=== PATIENT | male | born 2000 | race Caucasian/White ===

== ENCOUNTER 2018-09-01 13:11 | Emergency (ER) | payer BC ==
--- OUTSIDE RECORDS SUMMARY | 2018-09-01 13:26 | XMS REPORT | Continuity of Care Document ---
:2000 External Reference #:[id number] Author Name Farhad Abraham MD Address [address] [place] [address] Care Team Providers Name Role Phone Bharath Rios MD Primary Care Physician Unavailable Payers Date Identification Numbers Payment Provider Subscriber Policy Number: [id number] [facility] Mallika Arias PayID: [id number] [address] [address] [place] [address] Family History Date Family Member(s) Observation Comments Father No Current Problems Mother No Current Problems Paternal Grandfather Hearing or Eye Problems partially deaf Paternal Grandmother Lung Cancer Paternal Grandmother Thyroid Disease Removed Maternal Grandfather due to Lymphoma () Maternal Grandmother Diabetes Paternal Aunts due to Melanoma () Social History Type Date Description Comments Sex Unknown Lives With Mother And Father Lives With Older brother Pets 1 dog Pets 1 cat Tobacco Use Start: Unknown Patient has never smoked Smoking Status Reviewed: 08/08/18 Patient has never smoked Guns in Home Yes, Locked Up Currently Active Has never engaged in sexual activity Allergies, Adverse Reactions, Alerts Description No Known Drug Allergies Medications Description No Active Medications Immunizations CPT Code Status Date Vaccine Lot # [id number] Given 11/17/2015 Menactra/menveo [id number] 55534 Given 11/17/2015 Flu Vaccine, Split [id number] 98158 Given 01/08/2015 Flu Vaccine, Split [id number] 12082 Given 07/15/2014 Gardasil [id number] 98719 Given 03/11/2014 Gardasil [id number] 79539 Given 01/09/2014 Gardasil [id number] 01419 Given 11/23/2010 Menactra/menveo 46432 Given 12/31/2009 Tdap/Adacel 47920 Given 11/16/2009 Flu Mist 07419 Given 12/09/2008 Flu Mist 63067 Given 11/05/2007 Flu Vaccine, Split 59832 Given 03/08/2007 Flu Mist 26349 Given 09/07/2006 Varicella/Chicken Pox Vaccine 38855 Given 03/13/2006 Hepatitis A Vaccine 17435 Given 09/01/2005 Hepatitis A Vaccine 03140 Given 04/07/2005 Flu Mist 14246 Given 09/09/2003 IPV 92501 Given 09/09/2003 MMR 08436 Given 09/09/2003 DTaP 92695 Given 01/26/2001 DtaP-Hib 28349 Given 01/26/2001 Varicella/Chicken Pox Vaccine 57285 Given 01/26/2001 IPV 19991 Given 01/14/2000 Hepatitis B/Hib Combvax 83432 Given 01/14/2000 MMR 17170 Given 06/29/1999 DTaP 59087 Given 04/27/1999 Hepatitis B/Hib Combvax 51446 Given 04/27/1999 IPV 56478 Given 04/27/1999 DTaP 07891 Given 03/02/1999 Hepatitis B/Hib Combvax 80280 Given 03/02/1999 IPV 68848 Given 03/02/1999 DTaP Vital Signs Date Vital Result Comment 08/08/2018 1:04pm Body Temperature 98.7 F BP Systolic 119 mmHg BP Diastolic 75 mmHg Heart Rate 84 /min Respiratory Rate 22 /min Height 70.5 inches 5'10.50" Height Percentile 63 % Weight 124.00 lb Weight Percentile 6th BMI (Body Mass Index) 17.5 kg/m2 Body Mass Index Percentile 3 % Right Visual Acuity Distance WNL Left Visual Acuity Distance WNL Right ear audiology results Pass Left ear audiology results Pass 07/27/2018 9:04am Body Temperature 98.9 F Respiratory Rate 22 /min Height 70.5 inches 5'10.50" Height Percentile 63 % Weight 124.38 lb Weight Percentile 7th BMI (Body Mass Index) 17.6 kg/m2 Body Mass Index Percentile 3 % 04/04/2016 8:14am Weight 135.00 lb Weight Percentile 34th 02/01/2016 8:20am Weight 134.12 lb Weight Percentile 35th 01/11/2016 10:55am BP Systolic 124 mmHg BP Diastolic 85 mmHg Heart Rate 73 /min Height 70 inches 5'10" Height Percentile 64 % Weight 132.38 lb Weight Percentile 32nd BMI (Body Mass Index) 19.0 kg/m2 Body Mass Index Percentile 18 % Right Visual Acuity Distance 20/20 with glasses Left Visual Acuity Distance 20/20 Right ear audiology results passed Left ear audiology results passed 11/17/2015 4:12pm Body Temperature 98.7 F 01/08/2015 1:28pm BP Systolic 118 mmHg BP Diastolic 76 mmHg Heart Rate 76 /min Height 69 inches 5'9" Height Percentile 59 % Weight 155.25 lb Weight Percentile 79th BMI (Body Mass Index) 22.9 kg/m2 Body Mass Index Percentile 77 % Right Visual Acuity Distance passed with glasses Left Visual Acuity Distance passed with glasses Right ear audiology results passed Left ear audiology results passed 01/09/2014 2:03pm BP Systolic 116 mmHg BP Diastolic 82 mmHg Heart Rate 104 /min Height 67.25 inches 5'7.25" Height Percentile 54 % Weight 140.25 lb Weight Percentile 74th BMI (Body Mass Index) 21.8 kg/m2 Body Mass Index Percentile 74 % Right Visual Acuity Distance 20/25 with glasses Left Visual Acuity Distance 20/25 Right ear audiology results passed Left ear audiology results passed 11/23/2010 10:52am BP Systolic 110 mmHg BP Diastolic 76 mmHg Heart Rate 90 /min Height 59.5 inches 4'11.50" Height Percentile 64 % Weight 97.12 lb Weight Percentile 68th BMI (Body Mass Index) 19.3 kg/m2 Body Mass Index Percentile 72 % Right Visual Acuity Distance 20/30 Left Visual Acuity Distance 20/30 Right ear audiology results 20 db Left ear audiology results 20 db 11/16/2009 10:46am BP Systolic 100 mmHg BP Diastolic 67 mmHg Heart Rate 72 /min Height 57.25 inches 4'9.25" Height Percentile 64 % Weight 87.00 lb Weight Percentile 71st BMI (Body Mass Index) 18.7 kg/m2 Body Mass Index Percentile 73 % Right Visual Acuity Distance 20/20 with correction Left Visual Acuity Distance 20/20 with correction Right ear audiology results 20 db Left ear audiology results 20 db 08/27/2008 10:46am BP Systolic 89 mmHg BP Diastolic 60 mmHg Heart Rate 76 /min Height 54.5 inches 4'6.50" Height Percentile 59 % Weight 67.38 lb Weight Percentile 49th BMI (Body Mass Index) 15.9 kg/m2 Body Mass Index Percentile 39 % Right Visual Acuity Distance 20/50 Left Visual Acuity Distance 20/30 Results Test Date Facility Test Result H/L Range Note Laboratory test 07/27/2018 [facility] Rapid Strep A Negative Negative 1, [address] [place] [address] [phone] Laboratory test 07/27/2018 [facility] Throat Strep NO BETA [address] Screen STREPTOC <[place] [address] NOTE> [phone] Comp Metabolic 01/11/2016 [facility] Sodium 139 mmol/L N 133-145 Panel [phone] Potassium 4.4 mmol/L N 3.5-5.0 Chloride 102 mmol/L N 101-111 Co2 Carbon Dioxide 27 mmol/L N 22-32 Anion Gap 10 mmol/L N 2-11 Glucose 78 mg/dL N 70-100 Blood Urea Nitrogen 9 mg/dL N 6-24 Creatinine 0.85 mg/dL N 0.67-1.17 BUN/Creatinine Ratio 10.6 N 8-20 Calcium 10.1 mg/dL N 8.6-10.3 Total Protein 7.6 g/dL N 6.4-8.9 Albumin 4.9 g/dL N 3.2-5.2 Globulin 2.7 g/dL N 2-4 Albumin/Globulin Ratio 1.8 N 1-3 Total Bilirubin 1.00 mg/dL N 0.2-1.0 Alkaline Phosphatase 133 U/L High 34-104 Alt 17 U/L N 7-52 Ast 21 U/L N 13-39 CBC Auto Diff 01/11/2016 [facility] White Blood Count 10.2 10^3/uL N 3.5-10.8 [phone] Red Blood Count 5.68 10^6/uL High 4.0-5.4 Hemoglobin 17.0 g/dL N 14.0-18.0 Hematocrit 49 % N 42-52 Mean Corpuscular Volume 87 fL N 80-94 Mean Corpuscular Hemoglobin 30 pg N 27-31 Mean Corpuscular HGB Conc 34 g/dL N 31-36 Red Cell Distribution Width 12 % N 10.5-15 Platelet Count 208 10^3/uL N 150-450 Mean Platelet Volume 8 um3 N 7.4-10.4 Abs Neutrophils 8.4 10^3/uL High 1.5-7.7 Abs Lymphocytes 1.1 10^3/uL N 1.0-4.8 Abs Monocytes 0.6 10^3/uL N 0-0.8 Abs Eosinophils 0.1 10^3/uL N 0-0.6 Abs Basophils 0 10^3/uL N 0-0.2 Abs Nucleated RBC 0.02 10^3/uL N Granulocyte % 82.2 % N 38-83 Lymphocyte % 10.9 % Low 25-47 Monocyte % 5.8 % N 1-9 Eosinophil % 0.8 % N 0-6 Basophil % 0.3 % N 0-2 Nucleated Red Blood Cells % 0.2 N Laboratory test 01/11/2016 [facility] TSH (Thyroid Stim 1.06 mcIU/mL N 0.34-5.60 finding [phone] Horm) Lipid Profile 01/11/2016 [facility] Triglycerides 131 mg/dL N 4 (Trig/Chol/HDL) [phone] Cholesterol 127 mg/dL N 5 HDL Cholesterol 37.9 mg/dL N 6 LDL Cholesterol 63 mg/dL N 7 Lipid Profile (Trig/Chol/HDL) 01/12/2015 [facility] Triglycerides 170 mg/dL N 8 [phone] Cholesterol 135 mg/dL N 9 HDL Cholesterol 34.4 mg/dL N 10 LDL Cholesterol 67 mg/dL N 11 LDL Cholesterol 01/09/2014 [facility] Cholesterol 131 mg/dL 101-222 Profile [address] [place] [address] [phone] Triglycerides 289 mg/dL High 32-158 HDL Cholesterol 33 mg/dL 22-73 LDL-Cholesterol 40 mg/dL 1 J02.9 2 Infection due to Strep A cannot be ruled-out because the antigen present in the sample may be below the detection limit of the test. Culture confirmation of negative result is in progress Method: BD Veritor Chromatographic immunoassay 3 NO BETA STREPTOCOCCI ISOLATED 4 Desirable <90 Borderline high 90-129 High >129 5 Desirable <170 Borderline high 170-199 High >199 6 Low <40 Borderline low 40-59 Desirable >59 7 Desirable: <110 mg/dL Borderline high: 110-129 mg/dL High: >129 mg/dL 8 Desirable <90 Borderline high 90-129 High >129 9 Desirable <170 Borderline high 170-199 High >199 10 Low <40 Borderline low 40-59 Desirable >59 11 Desirable: <110 mg/dL Borderline high: 110-129 mg/dL High: >129 mg/dL Procedures Date Code Description Status 01/11/2016 56641 Visual Acuity Screen Bilat. Completed 01/11/2016 31947 Auditometry, Pure Tone Bilat Completed 01/11/2016 70286 Venipuncture Over 3 Yrs Old Completed 01/08/2015 03379 Visual Acuity Screen Bilat. Completed 01/08/2015 81127 Auditometry, Pure Tone Bilat Completed 01/09/2014 94423 Visual Acuity Screen Bilat. Completed 01/09/2014 11545 Auditometry, Pure Tone Bilat Completed 11/23/2010 68339 Visual Acuity Screen Bilat. Completed 11/23/2010 89211 Auditometry, Pure Tone Bilat Completed 11/16/2009 42833 Visual Acuity Screen Bilat. Completed 11/16/2009 97634 Auditometry, Pure Tone Bilat Completed 08/27/2008 01351 Visual Acuity Screen Bilat. Completed 08/27/2008 95096 Auditometry, Pure Tone Bilat Completed 11/05/2007 74330 Auditometry, Pure Tone Bilat Completed 11/05/2007 42349 Visual Acuity Screen Bilat. Completed 09/07/2006 52806 Visual Acuity Screen Bilat. Completed 09/07/2006 09599 Auditometry, Pure Tone Bilat Completed 09/01/2005 41855 Visual Acuity Screen Bilat. Completed 09/01/2005 67930 Auditometry, Pure Tone Bilat Completed 06/30/2005 47371 Wart Removal 1-14 Completed 06/02/2005 04055 Wart Removal 1-14 Completed 05/16/2005 46508 Wart Removal 1-14 Completed 04/28/2005 22064 Wart Removal 1-14 Completed 03/22/2005 89001 Wart Removal 1-14 Completed 11/04/2004 82310 Visual Acuity Screen Bilat. Completed 11/04/2004 69951 Auditometry, Pure Tone Bilat Completed 07/29/2004 80958 Venipuncture Over 3 Yrs Old Completed 07/31/2003 90322 Tympanometry Completed Encounters Type Date Location Provider Dx Diagnosis Office Visit 07/27/2018 Main Office Shavon Reyna NP J02.9 Acute pharyngitis, 9:00a unspecified Office Visit 04/04/2016 Main Office KEON Nolan R63.4 Abnormal weight loss 8:00a Office Visit 02/01/2016 Main Office KEON Nolan R63.4 Abnormal weight loss 8:15a Office Visit 01/11/2016 Main Office KEON Nolan Z00.129 Encntr for routine 10:45a child health exam w/o abnormal findings R63.4 Abnormal weight loss Office Visit 01/08/2015 1:15p Main Office Bharath Z00.129 Encntr for MD Blanca routine child health exam w/o abnormal findings Z71.41 Alcohol abuse counseling and surveillance of alcoholic Office Visit 01/09/2014 1:45p Main Office Bharath Rios MD V20.2 Routine Or Child Health Check V65.42 Counseling On Substance Use & Abuse Office Visit 11/23/2010 2:30p Main Office Bharath Rios MD V20.2 Routine Or Child Health Check V65.42 Counseling On Substance Use & Abuse V03.89 Bacterial Diseases Single Vaccination Spec Other Office Visit 03/24/2010 6:15p Main Office Bharath Rios MD 462 Pharyngitis Acute 463 Tonsillitis Acute Office Visit 11/16/2009 1:45p Main Office Bharath Rios MD V20.2 Routine Or Child Health Check V65.42 Counseling On Substance Use & Abuse Office Visit 08/27/2008 10:45a Main Office Bharath Rios MD V20.2 Routine Infant Or Child Health Check V65.42 Counseling On Substance Use & Abuse Office Visit 11/05/2007 1:45p Main Office Bharath Rios MD V20.2 Routine Or Child Health Check V65.42 Counseling On Substance Use & Abuse Office Visit 03/08/2007 2:45p Main Office Bharath 472.0 Rhinitis Chronic MD [place] Office Visit 09/07/2006 1:45p Main Office Bharath V20.2 Routine Or MD [place] Child Health Check Office Visit 09/01/2005 3:00p Main Office Bharath V20.2 Routine Or MD [place] Child Health Check Office Visit 07/27/2005 10:45a Main Office Bharath 372.00 Conjunctivitis Acute MD [place] Unspec Office Visit 07/07/2005 3:45p Main Office Bharath 078.19 Viral Warts Spec MD [place] Other Office Visit 06/23/2005 3:30p Main Office Bharath 078.10 Viral Warts Unspec MD [place] Office Visit 04/28/2005 3:30p Main Office Bharath 078.10 Viral Warts Unspec MD [place] Office Visit 04/07/2005 3:30p Main Office Bharath 078.10 Viral Warts Unspec MD [place] Office Visit 11/04/2004 4:45p Main Office Bharath V20.2 Routine Infant Or MD [place] Child Health Check Office Visit 07/29/2004 11:00a Main Office Bharath 465.9 URI Upper MD [place] Respiratory Infections Acute Unspec Sites 079.9 Viral Infection Office Visit 11/11/2003 11:00a Main Office Bharath Rios MD 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 Office Visit 10/31/2003 10:30a Main Office Bharath Rios MD 382.9 Otitis Media Unspec 465.9 URI Upper Respiratory Infections Acute Unspec Sites 462 Pharyngitis Acute Office Visit 07/31/2003 9:00a Main Office Bharath Rios MD 382.9 Otitis Media Unspec 465.9 URI Upper Respiratory Infections Acute Unspec Sites Office Visit 06/30/2003 2:30p Main Office Bharath Rios MD 382.9 Otitis Media Unspec 372.00 Conjunctivitis Acute Unspec Office Visit 12/27/2002 11:30a Main Office Bharath Rios MD 462 Pharyngitis Acute Plan of Treatment 08/08/2018 - Farhad Abraham MDZ00.129 Encounter for routine child health examination without abnormal findingsComments:vaccines givenFollow up:1 year for CC and 1 mo. for vaccines
[2018-09-01 13:37] VITALS: BP 113/73
--- NOTE | 2018-09-01 13:51 | UC ---
Skin Complaint HPI - HPI Summary HPI Summary: 17 y/o mal presents to the urgent care c/o tick on the lateral side of his left gluteus he noticed this morning after taken a shower. He removed the tick w / tweezers and brought it to the clinic. full tick and no remnants presents in Pt's skin. No Hx og tick bites in the past. 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 Pt denies fever, FORBES, joint pain, SOB, chest pain, abdominal pain, N/v/d. - History of Current Complaint Chief Complaint: UCSkin Time Seen by Provider: 09/01/18 13:50 Stated Complaint: TICK BITE Hx Obtained From: Patient Onset/Duration: Sudden Onset, Lasting Hours - 6hrs ago noticed tick on lateral side of left gluteus and removed it Skin Exposure Onset/Duration: Days Ago - 1 day Timing: Constant Onset Severity: Mild Current Severity: Mild Pain Intensity: 0 Pain Scale Used: 0-10 Numeric Location: Discrete - laterasl of left gluteus Character: Pruritus, Redness Aggravating Factor(s): Touch Alleviating Factor(s): Other - tick removal Associated Signs & Symptoms: Positive: Rash - tick bite Related History: Possible Reaction to: Insect - tick - Allergy/Home Medications Allergies/Adverse Reactions: Allergies Allergy/AdvReac Type Severity Reaction Status Date / Time No Known Allergies Allergy Verified 09/01/18 13:36 PMH/Surg Hx/FS Hx/Imm Hx Previously Healthy: Yes - Pt denies PMHX - Surgical History Surgical History: Yes Surgery Procedure, Year, and Place: ACL repair at 10 years - Family History Known Family History: Positive: Diabetes - Social History Occupation: Employed Part-time, Student Lives: With Family Alcohol Use: Occasionally Substance Use Type: Marijuana Substance Use Comment - Amount & Last Used: occasionally Smoking Status (MU): Light Every Day Tobacco Smoker Type: eCigarettes Amount Used/How Often: daily - Immunization History Vaccination Up to Date: Yes Review of Systems All Other Systems Reviewed And Are Negative: Yes Constitutional: Positive: Negative Skin: Positive: Other - tick bite on lateral side of left gluteus Eyes: Positive: Negative ENT: Positive: Negative Respiratory: Positive: Negative Cardiovascular: Positive: Negative Gastrointestinal: Positive: Negative Genitourinary: Positive: Negative Motor: Positive: Negative Neurovascular: Positive: Negative Musculoskeletal: Positive: Negative Neurological: Positive: Negative Psychological: Positive: Negative Is Patient Immunocompromised?: No Physical Exam - Summary Physical Exam Summary: Vital Signs Reviewed: Yes General: well developed, well nourished male adolescent sitting in the examining table w/o any apparent distress. Eyes: Positive: Conjunctiva Clear - PERRLA, EOMI ENT: Positive: Normal ENT inspection, Hearing grossly normal, Pharynx normal, TMs normal Neck: Positive: Supple, Nontender, No Lymphadenopathy Respiratory: Positive: Chest nontender, Lungs clear, Normal breath sounds Cardiovascular: Positive: RRR, No Murmur, Pulses Normal Abdomen Description: Positive: Nontender, No Organomegaly, Soft. Negative: CVA Tenderness (R), CVA Tenderness (L) Bowel Sounds: Positive: Present Musculoskeletal: Positive: Strength Intact, ROM Intact, No Edema Neurological Exam: Normal Psychological Exam: Normal Skin: Positive: rashes - Lateral sied of the left gluteus w/ tick bite with surrounding erythema, non tender to palpation. tick no longer present, no swelling or drainage observed. Triage Information Reviewed: Yes Vital Signs: Initial Vital Signs Temp 98.5 F 09/01/18 13:31 Pulse 65 09/01/18 13:31 Resp 16 09/01/18 13:31 BP 113/73 09/01/18 13:31 Pulse Ox 100 09/01/18 13:31 Course/Dx - Course Course Of Treatment: 17 y/o mal presents to the urgent care c/o tick on the lateral side of his left gluteus he noticed this morning after taken a shower. He removed the tick w / tweezers and brought it to the clinic. full tick and no remnants presents in Pt's skin. No Hx og tick bites in the past. 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 Pt denies fever, FORBES, joint pain, SOB, chest pain, abdominal pain, N/v/d. Hx obtained. Pt Lateral sied of the left gluteus w/ tick bite with surrounding erythema, non tender to palpation. tick no longer present, no swelling or drainage observed on examination. . Skin cleaned w/ alcoho swab. Antibiotic prophylaxis with Doxycycline given to the patient to prevent lyme Disease.. Pt tolerated well medication. Pt Rx Bacitracin oint to prevent infection. Pt advised to observe the area for the development or Erythema Migrans for upto 30 days following exposure. Advised if he develops fever or erythema Migrans to return to the clinic or PCP for further treatment .Pt understood and agreed with plan of care. - Differential Diagnoses - Skin Complaint Differential Diagnoses: Abscess, Poison Cathi, Poison [place], Scabies, Tick Born Illness, Urticaria, Other - bee sting, insect bite - Diagnoses Provider Diagnosis: Tick bite Discharge - Sign-Out/Discharge Documenting (check all that apply): Patient Departure - D/c home All imaging exams completed and their final reports reviewed: No Studies - Discharge Plan Condition: Stable Disposition: HOME Prescriptions: Bacitracin OINTMENT* 1 applic TOPICAL BID #1 tube Patient Education Materials: Tick Bite (ED) Referrals: Bharath Rios MD [Primary Care Provider] - 2 Weeks Nik LOCKHART,Marlon Danielson [Medical Doctor] - If Needed Additional Instructions: 1- Please observe the area for the development or Erythema Migrans for upto 30 days following exposure. Components of the tick saliva can cause transient erythema that should not be confused with Erythema Migrans. If you develop the bull's eye rash, fever, joint pains please return to the urgent care or f/u with your PCP or Dr Zaragoza for further management. Apply Bacitracin oint around tick bite as directed 2-Antibiotic prophylaxis with Doxycycline was given to you today to prevent lyme Disease. Lyme serology can be drawn in 2 weeks with your PCP to r/o Lyme disease since there is probability of negative results at early exposure. - Billing Disposition and Condition Condition: STABLE Disposition: Home - Attestation Statements Provider Attestation: Per institutional requirements, I have reviewed the chart, however, I was not consulted specifically or made aware of this patient by the midlevel provider. I did not personally evaluate, interact with , or disposition this patient.
[2018-09-01] MEDS ORDERED: DOXYcycline CAP(*) 100 MG PO ONE (14:06)
== END 2018-09-01 14:21 | disposition home or self-care (01) ==
LOC: UCCORT 13:11
DX: T63.481A Toxic effect of venom of other arthropod, accidental (unintentional), initial encounter (principal); Y92.9 Unspecified place or not applicable; F17.210 Nicotine dependence, cigarettes, uncomplicated
CPT/HCPCS: 99212; A9270-GY; G0463